=== PATIENT | female | born 1945 | race Caucasian/White ===

== ENCOUNTER 2021-06-28 14:27 | Emergency (ER) | payer MEDICARE ==
[~2021-06-28] VITALS: Ht 157.5 cm; Wt 75.0 kg
[2021-06-28 17:36] LABS: HEMATOCRIT. 34.3 % (36.0-48.0); HEMOGLOBIN. 11.4 g/dL (12.0-16.0); MEAN CORPUSCULAR HEMOGLOBIN 29.3 pg (28.0-32.0); MEAN CORPUSCULAR VOLUME 88.3 fL (81.0-99.0); MEAN PLATELET VOLUME 7.2 fl (7.4-10.4); PLATELET 259 x1000/uL (130-400); RED BLOOD CELL COUNT 3.88 mill/uL (4.2-5.4); RED CELL DISTRIBUTION WIDTH 13.5 % (11.6-14.6)
[2021-06-28 17:46] LABS: CHLORIDE 106 mEq/L (98-107)
[2021-06-28 19:20] LABS: PLATELET ESTIMATE NORMAL
[2021-06-28 21:00] VITALS: BP 139/66
== END 2021-06-28 21:20 | disposition home or self-care (01) ==
LOC: ER 14:38
DX: R55 Syncope and collapse (principal); I10 Essential (primary) hypertension
CPT/HCPCS: 36415; 71045; 80053; 83880; 84484; 85025; 93005; 93970; 99285